=== PATIENT | male | born 1970 | race Caucasian/White ===

== ENCOUNTER 2020-04-29 12:43 | Emergency (ER) | payer MEDICAID ==
[2020-04-29] MEDS ORDERED: Sodium Chloride 0.9% 10 ML Syringe FLUSH PRN (12:45)
--- NOTE | 2020-04-29 12:58 | EDM.PDOC ---
ED HPI GENERAL MEDICAL PROBLEM - General Chief Complaint: Chest Pain Stated Complaint: chest pains Time Seen by Provider: 04/29/20 12:44 Source of Information: Reports: Patient History Limitations: Reports: No Limitations - History of Present Illness INITIAL COMMENTS - FREE TEXT/NARRATIVE: Denzel is a 50-year-old male presenting to the ED for acute onset of chest pain. Patient reports that the pain is sharp and stabbing behind the sternum but not associated with any shortness of breath, diaphoresis, or nausea. The patient has had episodes of this in the past but not pursued any medical evaluation for them. The patient was cleaning his garage when he had an onset of symptoms. Patient normally has a very strenuous workload, however, he was not doing his typical job today they would contribute to that strain but rather clean his garage at a leisurely pace. The patient denies any past medical history significant for heart disease, hypertension, or hyperlipidemia. He does smoke approximately 1 pack of cigarettes per day. He denies any fever, chills, cough or shortness of breath, loss of taste or smell, nausea, vomiting, diarrhea, or constipation. The patient's symptoms started approximately 20 to 30 minutes prior to arrival. Chest Pain Score (Numeric/FACES): 1 - Related Data Allergies Allergy/AdvReac Type Severity Reaction Status Date / Time Penicillins Allergy Hives Verified 04/29/20 12:58 morphine AdvReac Nausea Verified 04/29/20 12:58 Home Meds: Home Meds Triamterene/Hydrochlorothiazid [Triamterene-HCTZ 37.5-25 MG] 1 each PO DAILY 06/13/19 [History] metroNIDAZOLE [metroNIDAZOLE 0.75% Cream] 1 applic TOP BIDAC 06/13/19 [History] terbinafine HCL [Terbinafine] 1 applic TOP DAILY 06/13/19 [History] Past Medical History - Past Surgical History Other Musculoskeletal Surgeries/Procedures:: bone spur ED ROS GENERAL - Review of Systems Review Of Systems: See Below Constitutional: Reports: No Symptoms HEENT: Reports: No Symptoms Respiratory: Reports: No Symptoms Cardiovascular: Reports: Chest Pain Endocrine: Reports: No Symptoms GI/Abdominal: Reports: No Symptoms : Reports: No Symptoms Musculoskeletal: Reports: No Symptoms Skin: Reports: No Symptoms Neurological: Reports: No Symptoms Psychiatric: Reports: No Symptoms Hematologic/Lymphatic: Reports: No Symptoms Immunologic: Reports: No Symptoms ED EXAM, GENERAL - Physical Exam Exam: See Below Exam Limited By: No Limitations General Appearance: Alert, WD/WN, Anxious Eye Exam: Bilateral Eye: EOMI, PERRL Head: Atraumatic, Normocephalic Neck: Normal Inspection, Supple, Non-Tender, Full Range of Motion Respiratory/Chest: No Respiratory Distress, Lungs Clear, Normal Breath Sounds, No Accessory Muscle Use, Chest Non-Tender Cardiovascular: Normal Peripheral Pulses, Regular Rate, Rhythm, No Edema, No JVD, No Murmur Peripheral Pulses: 2+: Radial (L), Radial (R), Posterior Tibial (L), Posterior Tibial (R) GI/Abdominal: Normal Bowel Sounds, Soft, Non-Tender, No Distention, No Abnormal Bruit Back Exam: Normal Inspection, Full Range of Motion Extremities: Normal Inspection, Normal Range of Motion, Non-Tender, No Pedal Edema Neurological: Alert, Oriented, Normal Cognition, No Motor/Sensory Deficits Psychiatric: Normal Affect, Anxious Skin Exam: Warm, Dry, Intact, Normal Color, Rash (Psoriasis or eczema on the chest wall) Lymphatic: No Adenopathy #1 Interpretation EKG Date: 04/29/20 Time: 12:45 Rhythm: NSR Rate (Beats/Min): 107 [place]: Normal P-Wave: Present QRS: Normal ST-T: Normal QT: Normal Comparison: NA - No Prior EKG Course - Vital Signs Last Recorded V/S: Last Vital Signs Temp 36.9 C 04/29/20 12:54 Pulse 93 04/29/20 14:14 Resp 15 04/29/20 14:14 BP 148/99 H 04/29/20 14:14 Pulse Ox 97 04/29/20 14:14 - Orders/Labs/Meds Orders: Active Orders 24 hr Category Date Time Status EKG Documentation Completion [RC] ASDIRECTED Care 04/29/20 12:45 Active Chest 2V [CR] Stat Exams 04/29/20 13:35 Taken Sodium Chloride 0.9% [Saline Flush] Med 04/29/20 12:45 Active 10 ml FLUSH ASDIRECTED PRN Saline Lock Insert [OM.PC] Routine Oth 04/29/20 12:45 Ordered EKG 12 Lead [EK] Routine Ther 04/29/20 12:45 Ordered Medication Orders Sodium Chloride (Saline Flush) 10 ml FLUSH ASDIRECTED PRN PRN Reason: Keep Vein Open Labs: Laboratory Tests 04/29/20 04/29/20 04/29/20 Range/Units 12:56 12:56 12:56 WBC 6.9 (4.5-11.0) K/uL RBC 5.28 (4.30-5.90) M/uL Hgb 15.7 H (12.0-15.0) g/dL Hct 48.2 (40.0-54.0) % MCV 91 (80-98) fL MCH 30 (27-31) pg MCHC 33 (32-36) % Plt Count 341 (150-400) K/uL Neut % (Auto) 48 (36-66) % Lymph % (Auto) 35 (24-44) % [place] % (Auto) 13 H (2-6) % Eos % (Auto) 3 (2-4) % Baso % (Auto) 1 (0-1) % PT 10.7 (9.5-12.0) sec INR 0.98 (0.80-1.20) APTT 25.0 L (27.0-36.0) sec D-Dimer, Quantitative (0.0-500.0) ng/mL Sodium 138 L (140-148) mmol/L Potassium 3.5 L (3.6-5.2) mmol/L Chloride 100 (100-108) mmol/L Carbon Dioxide 26 (21-32) mmol/L Anion Gap 15.5 H (5.0-14.0) mmol/L BUN 15 (7-18) mg/dL Creatinine 0.9 (0.8-1.3) mg/dL Est Cr Clr Drug Dosing 102.26 mL/min Estimated GFR (MDRD) > 60 (>60) Glucose 110 H (74-106) mg/dL Calcium 8.7 (8.5-10.1) mg/dL Total Bilirubin 0.3 (0.2-1.0) mg/dL AST 18 (15-37) U/L ALT 28 (12-78) U/L Alkaline Phosphatase 96 (46-116) U/L Troponin I < 0.017 (0.000-0.056) ng/mL C-Reactive Protein (0.0-0.3) mg/dL Total Protein 7.0 (6.4-8.2) g/dL Albumin 3.4 (3.4-5.0) g/dL Globulin 3.6 H (2.3-3.5) g/dL Albumin/Globulin Ratio 0.9 L (1.2-2.2) 04/29/20 04/29/20 Range/Units 12:56 13:52 WBC (4.5-11.0) K/uL RBC (4.30-5.90) M/uL Hgb (12.0-15.0) g/dL Hct (40.0-54.0) % MCV (80-98) fL MCH (27-31) pg MCHC (32-36) % Plt Count (150-400) K/uL Neut % (Auto) (36-66) % Lymph % (Auto) (24-44) % [place] % (Auto) (2-6) % Eos % (Auto) (2-4) % Baso % (Auto) (0-1) % PT (9.5-12.0) sec INR (0.80-1.20) APTT (27.0-36.0) sec D-Dimer, Quantitative 368.17 (0.0-500.0) ng/mL Sodium (140-148) mmol/L Potassium (3.6-5.2) mmol/L Chloride (100-108) mmol/L Carbon Dioxide (21-32) mmol/L Anion Gap (5.0-14.0) mmol/L BUN (7-18) mg/dL Creatinine (0.8-1.3) mg/dL Est Cr Clr Drug Dosing mL/min Estimated GFR (MDRD) (>60) Glucose (74-106) mg/dL Calcium (8.5-10.1) mg/dL Total Bilirubin (0.2-1.0) mg/dL AST (15-37) U/L ALT (12-78) U/L Alkaline Phosphatase (46-116) U/L Troponin I (0.000-0.056) ng/mL C-Reactive Protein 0.55 H (0.0-0.3) mg/dL Total Protein (6.4-8.2) g/dL Albumin (3.4-5.0) g/dL Globulin (2.3-3.5) g/dL Albumin/Globulin Ratio (1.2-2.2) Meds: Medications Generic Name Dose Route Start Last Admin Trade Name Monico PRN Reason Stop Dose Admin Sodium Chloride 10 ml 04/29/20 12:45 Saline Flush FLUSH ASDIRECTED PRN Keep Vein Open - Radiology Interpretation Free Text/Narrative:: 2 view chest x-ray is unremarkable for any significant findings. - Re-Assessments/Exams Free Text/Narrative Re-Assessment/Exam: 04/29/20 14:31 I reviewed the patient's labs including CBC, comprehensive metabolic panel, troponin I, CRP, D-dimer, PT, and PTT. The CRP is mildly elevated at 0.55 indicating some degree of inflammation. Troponin I is negative at less than 0.017. D-dimer is also negative. Chest x-ray was obtained and shows no acute abnormalities. At this time, the patient is adamant about being discharged as he has things he needs to do. We discussed the risks and benefits of this versus waiting 3 hours to recheck a troponin. The patient is not interested in rechecking the troponin. We did come to an agreement that if he has recurrence of his pain symptoms he would return to the ED for further evaluation. Departure - Departure Time of Disposition: 14:33 Disposition: Home, Self-Care 01 Condition: Good Clinical Impression: Chest pain in adult Instructions: Nonspecific Chest Pain, Adult Referrals: PCP,None [Primary Care Provider] - Forms: ED Department Discharge Care Plan Goals: Your lab work today shows that you likely have costochondritis or an inflammation of the joints between the ribs and the sternum as a possible cause for your chest pain. This may be treated with [id number] ibuprofen 3 tablets every 6 hours to reduce the inflammation and therefore reduce the pain. If you get recurrence of your symptoms I encourage you to return to the ED for reevaluation as we cannot completely rule out heart being the likely cause for your pain, however, your EKG and initial blood work look good but does not completely exclude heart as being a cause. Sepsis Event Note (ED) - Focused Exam Vital Signs: Vital Signs Temp Pulse Resp BP Pulse Ox 04/29/20 14:14 93 15 148/99 H 97 04/29/20 13:33 94 136/99 H 04/29/20 13:18 94 17 143/99 H 99 04/29/20 13:03 97 18 151/101 H 100 04/29/20 12:54 36.9 C 103 H 18 149/101 H 100 - Problem List & Annotations (1) Chest pain in adult SNOMED Code(s): 64812351 Code(s): R07.9 - CHEST PAIN, UNSPECIFIED Status: Acute Priority: High Current Visit: Yes - Problem List Review Problem List Initiated/Reviewed/Updated: Yes - My Orders Last 24 Hours: My Active Orders 04/29/20 12:45 EKG Documentation Completion [RC] ASDIRECTED Sodium Chloride 0.9% [Saline Flush] 10 ml FLUSH ASDIRECTED PRN Saline Lock Insert [OM.PC] Routine EKG 12 Lead [EK] Routine 04/29/20 13:35 Chest 2V [CR] Stat - Assessment/Plan Last 24 Hours: My Active Orders 04/29/20 12:45 EKG Documentation Completion [RC] ASDIRECTED Sodium Chloride 0.9% [Saline Flush] 10 ml FLUSH ASDIRECTED PRN Saline Lock Insert [OM.PC] Routine EKG 12 Lead [EK] Routine 04/29/20 13:35 Chest 2V [CR] Stat
[2020-04-29 14:15] VITALS: BP 148/99; PULSE 93
--- NOTE | 2020-04-29 14:40 | CR ---
CHEST: 2 view CLINICAL HISTORY:Chest pain COMPARISON:2007 FINDINGS: The heart size, pulmonary vascularity and hilar structures are normal. No infiltrate effusion or pneumothorax is seen. IMPRESSION: No acute cardiopulmonary process.
== END 2020-04-29 14:50 | disposition home or self-care (01) ==
LOC: JP.ED 12:43
DX: R07.9 Chest pain, unspecified (principal); F17.210 Nicotine dependence, cigarettes, uncomplicated; Z88.5 Allergy status to narcotic agent; Z88.0 Allergy status to penicillin
CPT/HCPCS: 36415; 71046; 71046-26; 80053; 84484; 85025; 85379; 85610; 85730; 86140; 93005; 93010; 99285-25